=== PATIENT | female | born 1965 | race Caucasian/White ===

== ENCOUNTER 2018-10-31 15:09 | Emergency (ER) | payer MEDICAID, OTHER ==
[~2018-10-31] VITALS: Ht 157.5 cm; Wt 82.0 kg
[2018-10-31 15:19] VITALS: Ht 157.5 cm; Wt 82.0 kg
[2018-10-31] MEDS ORDERED: SOD CHLORIDE 0.9% 500 ML IV STA (17:53)
[2018-10-31 17:59] VITALS: TEMP 97.8
[2018-10-31] MEDS ORDERED: AMLO5TAB4 PO (17:59)
[2018-10-31] MEDS ORDERED: CALC-834 PO (18:00)
[2018-10-31] MEDS ORDERED: IBUP-1542 PO (18:00)
[2018-10-31] MEDS ORDERED: METOCLOPRAMIDE 10 MG INJ IV ONE (18:00)
[2018-10-31] MEDS ORDERED: MECL12.574 PO (19:29)
--- NOTE | 2018-10-31 19:29 | ERD ---
ER Documentation Chief Complaint Chief Complaint dizziness x 4 week; feels weak; hx of vertigo HPI 53-year-old female history of hypertension presents the ED complaining of a month long history of generalized weakness and dizziness. Denies headache, visual changes, focal weakness or numbness. Patient describes her dizziness as lightheadedness but occasionally has vertiginous type symptoms. Denies ear pain, tinnitus nasal congestion, hearing changes or recent viral illnesses. No chest pain, palpitations or shortness of breath. Denies abdominal pain. Mild nausea but no vomiting, diarrhea or constipation. Denies depression or anxiety. Denies anorexia, weight loss, night sweats, fevers or chills. Patient was seen at another hospital several weeks ago and a full work-up including CT of the brain is reported as negative by the patient. ROS All systems reviewed and are negative except as per history of present illness. Medications Home Meds Active Scripts Meclizine Hcl* (Antivert*) 12.5 Mg Tab, 25 MG PO Q8H PRN for DIZZINESS, #15 TAB Prov:CLARISA MALHOTRA MD 10/31/18 Reported Medications Ibuprofen* (Ibuprofen*) 600 Mg Tablet, 600 MG PO NEEDED, TAB 10/31/18 Calcium Carbonate/Vitamin D3 (Calcium 600 + Vit D 400 Tablet) 1 Each Tablet, 1 EACH PO BID, TAB 10/31/18 Amlodipine Besylate* (Norvasc*) 5 Mg Tablet, 5 MG PO DAILY, TAB 10/31/18 Allergies Allergies: Coded Allergies: No Known Allergy (Unverified , 10/31/18) PMhx/Soc Medical and Surgical Hx: pt denies Surgical Hx History of Surgery: No Anesthesia Reaction: No Hx Neurological Disorder: No Hx Respiratory Disorders: No Hx Cardiac Disorders: Yes (htn) Hx Psychiatric Problems: No Hx Miscellaneous Medical Probl: No Hx Alcohol Use: No Hx Substance Use: No Hx Tobacco Use: No Smoking Status: Never smoker FmHx No sudden cardiac , stroke or cancer Physical Exam Vitals Temp: 98.6. Blood pressure: 130/80. Pulse: 86. Respirations: 20. O2 saturation 96% on room air. Physical Exam Const: Anxious but in no acute distress. Head: Atraumatic Eyes: Pupils equal react to light, extraocular movements are intact. No nystagmus. Normal Conjunctiva ENT: Normal External Ears, Nose and Mouth. TMs are alcocer and mobile bilaterally. Pharynx is clear without erythema or exudate. Neck: Full range of motion. Nontender. Carotids 2+ bilaterally without bruits. No meningismus. Resp: Clear to auscultation bilaterally Cardio: Regular rate and rhythm, no murmurs Abd: Soft, non tender, non distended. No rebound or guarding. No masses. Normal bowel sounds Skin: No petechiae or rashes Back: No midline or flank tenderness Ext: No cyanosis, or edema Neur: Awake and alert. Cranials 2 through 12 are grossly intact. Motor and sensory equal bilaterally. No dysdiadochokinesis. Normal gait. Psych: Patient appears anxious but not depressed. Results 24 hrs Laboratory Tests Test 10/31/18 18:32 White Blood Count 9.7 10^3/ul Red Blood Count 4.87 10^6/ul Hemoglobin 14.7 g/dl Hematocrit 42.7 % Mean Corpuscular Volume 87.7 fl Mean Corpuscular Hemoglobin 30.2 pg Mean Corpuscular Hemoglobin Concent 34.4 g/dl Red Cell Distribution Width 12.4 % Platelet Count 286 10^3/UL Mean Platelet Volume 8.8 fl Immature Granulocytes % 0.400 % Neutrophils % 63.5 % Lymphocytes % 26.8 % Monocytes % 5.9 % Eosinophils % 2.6 % Basophils % 0.8 % Nucleated Red Blood Cells % 0.0 /100WBC Immature Granulocytes # 0.040 10^3/ul Neutrophils # 6.2 10^3/ul Lymphocytes # 2.6 10^3/ul Monocytes # 0.6 10^3/ul Eosinophils # 0.3 10^3/ul Basophils # 0.1 10^3/ul Nucleated Red Blood Cells # 0.0 10^3/ul Sodium Level 146 mmol/L Potassium Level 3.6 mmol/L Chloride Level 105 mmol/L Carbon Dioxide Level 30 mmol/L Anion Gap 11 Blood Urea Nitrogen 14 mg/dl Creatinine 0.69 mg/dl Est Glomerular Filtrat Rate mL/min > 60 mL/min Glucose Level 97 mg/dl Calcium Level 9.6 mg/dl Thyroid Stimulating Hormone (TSH) 2.620 MIU/L Current Medications Medications Dose Sig/Cody Start Time Status Last (Trade) Ordered Route PRN Stop Time Admin Dose Reason Admin Sodium 500 ml @ Q1H STAT 10/31/18 DC 10/31/18 Chloride 500 mls/hr IV 17:53 18:35 10/31/18 18:52 10 mg ONCE ONCE 10/31/18 DC 10/31/18 Metoclopramid IV 18:00 18:35 e HCl 10/31/18 18:01 (Reglan) Procedures/MDM DOCUMENTS REVIEWED: ED nurse, prior records EKG: Time: 183. Sinus rhythm. Ventricular rate 70. Normal OH and QRS. No acute ST elevation or depression. T wave inversion in lead V1. No ectopy. QTc is normal. My Interpretation MEDICAL DECISION MAKIN-year-old female history of hypertension presents the ED complaining of a month long history of generalized weakness and dizziness. CBC to evaluate for leukocytosis and anemia is unremarkable. Chemistry reveals mild hyponatremia but no other electrolyte abnormalities, renal insufficiency or hyperglycemia. EKG is negative for dysrhythmia or acute ischemic changes. CT of the brain considered but deferred as patient has no focal deficits, headache evidence of meningitis, seizure or elevated cranial pressure and reports a recent negative CT. No hypothyroidism as TSH is normal. No signs of an occult infectious process including but not limited to meningitis and encephalitis. Possible mild dehydration. Symptoms resolved with intravenous hydration and metoclopramide. Although the etiology of the patient's symptoms are not definitively established her neurologic symptoms have stabilized while they have been evaluated in the department and are appropriate for outpatient work up. Abdominal exam is completely benign without tenderness, rebound, guarding, signs of peritonitis and occult intra-abdominal process and CT of the abdomen is deferred. An occult neoplasm is not ruled out. Stable for discharge with precautionary instructions and outpatient follow-up as counseled. Counseled patient regarding diagnostic workup, diagnosis and need for followup. Understands that the etiology of her symptoms are not established and need for urgent, outpatient follow-up or return to ED if symptoms recur, worsen or any other concerns. Departure Diagnosis: Primary Impression: Dizziness Additional Impression: Weakness generalized Condition: Stable CLARISA MALHOTRA MD Oct 31, 2018 19:28
[2018-10-31 19:50] VITALS: BP 132/89; PULSE 72; RESP 18
== END 2018-10-31 19:57 | disposition home or self-care (01) ==
LOC: E/R 15:09
DX: R42 Dizziness and giddiness (principal); I10 Essential (primary) hypertension; R53.1 Weakness
CPT/HCPCS: 80048; 84443; 85025; 93005; 96374; J2765; J7040; Z7502